=== PATIENT | female | born 2000 | race Caucasian/White ===

== ENCOUNTER 2025-03-09 15:12 | Outpatient (REF) | payer BC, SELFPAY ==
--- NOTE | 2025-03-09 14:45 | PAPFT_PTH ---
PATIENT: ANNEMARIE ROUSSEAU LOC: [facility] U#:[id number] AGE/SX: 24/F ROOM: RE03/09/[address]: Janki King NP : 2000 BED: DIS: 03/09/2025 SPEC #: [id number] RECD: 03/09/25 18:18 STATUS: NOLBERTO REAngelique #: [id number] WOLF: 03/09/25 14:[address]: Janki King NP DEPT: [facility] Cytology RECD BY: Trupti Dykes ENTERED: 03/09/25 18:18 SP TYPE: PAPFT OTHR DR: Cara Rojas Tissues: 1 - CX/ENDOCX FOR PAP SMEARS Procedures: PAP THIN PREP/[facility] Screening Comments: [id number]
== END 2025-03-09 15:13 | disposition home or self-care (01) ==
LOC: LBN 15:12
PROVIDERS: PCP Family Medicine; Visit Provider Nurse Practitioner Women's Health
DX: Z12.4 Encounter for screening for malignant neoplasm of cervix (principal)
CPT/HCPCS: 88142